=== PATIENT | male | born 1995 | race Caucasian/White ===

== ENCOUNTER 2017-02-26 09:43 | Emergency (ER) | payer OTHER ==
[~2017-02-26] VITALS: Ht 175.3 cm; Wt 87.1 kg
[2017-02-26 12:05] LABS: BASO % 0.4 % (0.0-1.0); EOS # 0.1 K/mm3 (0.0-0.50); EOS % 1.1 % (0.0-3.0); LARGE UNSTAINED CELL # 0.1 K/mm3 (0.0-0.4); LARGE UNSTAINED CELL % 0.9 % (0.0-4.0); LYMPH # 1.6 K/mm3 (1.5-6.5); LYMPH % 14.4 % (24.0-44.0); MEAN CORPUSCULAR HEMOGLOBIN 30.1 pg (27.0-33.0); MEAN CORPUSCULAR HGB CONC 34.2 g/dl (32.0-36.5); MEAN CORPUSCULAR VOLUME 88.1 fl (80.0-96.0); MONO # 0.4 K/mm3 (0.0-0.8); MONO % 4.3 % (0.0-5.0); NEUTROPHILS # 8.2 K/mm3 (1.8-7.7); NEUTROPHILS % 78.9 % (36.0-66.0); PLATELET COUNT, AUTOMATED 282 k/mm3 (150-450); RED CELL DISTRIBUTION WIDTH 13.2 % (11.5-14.5); WHITE BLOOD COUNT 10.4 K/mm3 (4.0-10.0)
[2017-02-26 12:20] LABS: ANION GAP 6 MEQ/L (8-16); BLOOD UREA NITROGEN 14 MG/DL (7-18); CALCIUM LEVEL 9.2 MG/DL (8.5-10.1); CARBON DIOXIDE LEVEL 29 MEQ/L (21-32); CHLORIDE LEVEL 100 MEQ/L (98-107); CREATININE FOR GFR 0.98 MG/DL (0.70-1.30); GLUCOSE, FASTING 92 MG/DL (70-105); POTASSIUM SERUM 3.6 MEQ/L (3.5-5.1); SODIUM LEVEL 135 MEQ/L (136-145)
[2017-02-26] MEDS ORDERED: ISOVUE-370 76% 100ML VIAL (Q9967) As Ordered ONE (12:45)
[2017-02-26 12:50] LABS: ERYTHROCYTE SEDIMENTATION RATE 8 mm/hr (0-15)
[2017-02-26] MEDS ORDERED: AMOX875T PO (14:20)
[2017-02-26 14:33] VITALS: BP 142/58
--- NOTE | 2017-02-26 15:57 | REP ---
CT NECK WITH CONTRAST: HISTORY: Right neck pain. CONTRAST: [id number], 75 mL. A BB was placed on the soft tissue overlying the angle of the right mandible. There is minimal enlargement of the tonsils. There is inferior extension of the tonsillar enlargement into the lateral ha of the oropharynx. There is minimal mass effect on the oropharynx. The naso- and hypopharynx, larynx and subglottic trachea are normal in appearance. The salivary and thyroid glands are normal. An enlarged lymph node 1.3 cm in width is present in the right internal jugular chain at the level of the aileen- and hypopharynx. Small lymph nodes less than 1 cm in size are present in the left internal jugular chain, posterior triangles and submandibular areas. The lung apices are clear. The visualized ____sinuses___ are clear. IMPRESSION: The above findings are consistent with tonsillitis and lymphadenitis. There is minimal mass effect on the oropharynx. Signed by Reji Caballero MD 02/26/2017 04:03 P
== END 2017-02-26 14:35 | disposition home or self-care (01) ==
LOC: M ED 11:08
DX: J03.90 Acute tonsillitis, unspecified (principal); R59.0 Localized enlarged lymph nodes
CPT/HCPCS: 36415; 70491; 80048; 85025; 85652; 86140; 99283; Q9967

== ENCOUNTER 2019-03-11 01:13 | Emergency (ER) | payer OTHER ==
[~2019-03-11] VITALS: Ht 177.8 cm; Wt 93.2 kg
[2019-03-11 01:13] VITALS: BP 141/78
[~2019-03-11 01:13] MED LIST: AMOX875T PO
== END 2019-03-11 02:28 | disposition left against medical advice (07) ==
LOC: M ED 01:13
DX: Z53.29 Procedure and treatment not carried out because of patient's decision for other reasons (principal)